=== PATIENT | female | born 1985 | race Caucasian/White ===

== ENCOUNTER 2018-12-14 23:04 | Emergency (ER) | payer MEDICAID, OTHER ==
[~2018-12-14] VITALS: Ht 162.6 cm; Wt 53.5 kg
--- NOTE | 2018-12-14 23:09 | NUR ---
PT AMBULATED TO BED 04.
[2018-12-14 23:10] VITALS: BP 139/77
--- NOTE | 2018-12-14 23:24 | NUR ---
ER-MD CAME BY BEDSIDE TO EVALUATE PT.
[2018-12-14] MEDS ORDERED: LIDOCAINE 1% 500 MG/50 ML VIAL INJ SCH (23:25)
--- NOTE | 2018-12-14 23:30 | NUR ---
REPAIR OF RIGHT HAND LACERATION STARTED.
--- NOTE | 2018-12-14 23:38 | NUR ---
REPAIR OF LACERATION WITH 5 STITCHES COMPLETED. PT.TOLERATED PROCEDURE WELL.
[2018-12-14] MEDS ORDERED: LIDOCAINE MPF 1% - 5 mL VIAL 5 ML ONE (23:40)
--- NOTE | 2018-12-14 23:45 | NUR ---
DISCHARGED BY ER-MD STABLE WITH VERBAL AND WRITTEN AFTERCARE INSTRUCTIONS GIVEN. VERBALIZED UNDERSTANDING. LEFT AMBULATORY WITH STABLE GAIT.
[2018-12-14 23:46] VITALS: BP 139/77
[2018-12-14] MEDS ORDERED: NEOMYCIN/POLYMYXIN/BACITRACIN 0.9 GM/1 PKT TP ONE (23:54)
== END 2018-12-14 23:45 | disposition home or self-care (01) ==
LOC: MED 23:04
DX: S61.411A Laceration without foreign body of right hand, initial encounter (principal); X58.XXXA Exposure to other specified factors, initial encounter; Y93.89 Activity, other specified; Y92.89 Other specified places as the place of occurrence of the external cause; Y99.8 Other external cause status
CPT/HCPCS: 12001; 99283; J2001

== ENCOUNTER 2018-12-17 18:46 | Emergency (ER) | payer OTHER ==
[~2018-12-17] VITALS: Ht 162.6 cm; Wt 64.0 kg
[2018-12-17 19:05] VITALS: BP 113/75
--- NOTE | 2018-12-17 19:24 | NUR ---
PT AMBULATED TO BED 09.
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
--- NOTE | 2018-12-17 21:00 | NUR ---
Left without being seen.
== END 2018-12-17 19:32 | disposition left against medical advice (07) ==
LOC: MED 18:46
DX: S61.011D Laceration without foreign body of right thumb without damage to nail, subsequent encounter (principal); Z53.21 Procedure and treatment not carried out due to patient leaving prior to being seen by health care provider; X58.XXXD Exposure to other specified factors, subsequent encounter

== ENCOUNTER 2018-12-22 16:46 | Emergency (ER) | payer OTHER ==
[~2018-12-22] VITALS: Ht 162.6 cm; Wt 64.5 kg
[2018-12-22 16:48] VITALS: BP 130/87
--- NOTE | 2018-12-22 17:05 | NUR ---
PT PRESENTS TO ED FOR RIGHT HAND SUTURE REMOVAL. ERYTHEMA AND & SWELLING NOTED TO AFFECTED SITE. PT REPORTS 7/10 PAIN. DENIES ANY NAUSEA, VOMITING OR DIARRHEA. REPORTS HAVING FEVER LAST NIGHT, SELF MEDICATED WITH TYLENOL; AFEBRILE AT THIS TIME. <3 SEC CAP REFILL; +PULSES. +ROM. VSS. ERMD TO EVALUATE PT.
[2018-12-22 17:59] VITALS: BP 130/87
--- NOTE | 2018-12-22 17:59 | NUR ---
Patient discharged with v/s stable. Written and verbal after care instructions given and explained. Patient verbalized understanding. Ambulatory with steady gait. All questions addressed prior to discharge. Advised to follow up with PMD.
== END 2018-12-22 17:59 | disposition home or self-care (01) ==
LOC: MED 16:46
DX: S61.411D Laceration without foreign body of right hand, subsequent encounter (principal); W25.XXXD Contact with sharp glass, subsequent encounter
CPT/HCPCS: 99283

== ENCOUNTER 2018-12-27 16:29 | Emergency (ER) | payer OTHER ==
[~2018-12-27] VITALS: Ht 160 cm; Wt 65.4 kg
[2018-12-27 16:50] VITALS: BP 114/68
--- NOTE | 2018-12-27 16:53 | NUR ---
PT AMBULATED TO LOBBY AT THIS TIME, VSS
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
[2018-12-27] MEDS ORDERED: BACITRACIN OINT 500 UNITS/GM PKT TP ONE (17:30)
[2018-12-27] MEDS ORDERED: cefTRIAXone 1,000 MG in LIDOCAINE MPF 1% - 5 mL VIAL 2.1 ML IM ONE (17:30)
--- NOTE | 2018-12-27 17:57 | NUR ---
IRRIGATED RIGHT HAND AND PLACED WOUND DRESSING ON PATIENT
[2018-12-27 18:14] VITALS: BP 111/65
--- NOTE | 2018-12-27 18:17 | NUR ---
Patient discharged with v/s stable. Written and verbal after care instructions given and explained. Patient alert, oriented and verbalized understanding of instructions. Ambulatory with steady gait. All questions addressed prior to discharge. ID band removed. Patient advised to follow up with PMD. Rx of keflex,bactrim, bacitrcin given. Patient educated on indication of medication including possible reaction and side effects. Opportunity to ask questions provided and answered.
== END 2018-12-27 18:14 | disposition home or self-care (01) ==
LOC: MED 16:29
DX: S61.411D Laceration without foreign body of right hand, subsequent encounter (principal); L08.9 Local infection of the skin and subcutaneous tissue, unspecified; X58.XXXD Exposure to other specified factors, subsequent encounter
CPT/HCPCS: 96372; 99283; J0696; J2001